=== PATIENT | female | born 1950 ===

== ENCOUNTER → 2024-03-17 06:27 | Outpatient (CLI) | payer OTHER ==
[2024-03-17 07:24] LABS: HEMATOCRIT 37.3 % (36.0-45.00); HEMOGLOBIN 12.8 g/dL (12.0-15.00); MEAN CELL VOLUME 87.8 fL (80.00-100.00); MEAN CORPUSCULAR HEMOGLOBIN 30.1 pg (27.00-32.0); MEAN CORPUSCULAR HGB CONC 34.3 g/dl (32.0-36.0); PLATELET COUNT 185 K/uL (150-450); RED BLOOD COUNT 4.25 M/uL (4.00-6.00); RED CELL DISTRIBUTION WIDTH 14.1 % (11.5-14.5)
[2024-03-17 08:16] LABS: ALBUMIN 3.6 gm/dL (3.4-5.0); BILIRUBIN TOTAL 0.44 mg/dL (0.3-1.2); CALCIUM 8.5 mg/dL (8.5-10.1); CREATININE SERUM 0.59 mg/dL (0.55-1.02); GFR 99.64; GLOBULINA 3.2 G/DL (2.4-3.5); POTASSIUM 3.95 mEq/L (3.5-5.1); T4 FREE 1.15 NG/ML (0.76-1.46); TOTAL PROTEIN 6.8 gm/dL (6.4-8.2); TSH 1.38 uIU/mL (0.358-3.74)
[2024-03-17 10:32] LABS: FOLIC ACID 12.9 ng/ml (4.78-20)
[2024-03-19 09:22] LABS: MANUAL PLATELET COUNT 270
[2024-03-19 09:24] LABS: PLATELET ESTIMATE NORMAL (NORMAL)
[2024-03-22 16:29] LABS: g6pd quant 259 (127-427); rbc 4.29 x10E6/uL (3.77-5.28)
== END | disposition home or self-care (01) ==
LOC: LAB 06:27
PROVIDERS: ATTEND Internal Medicine Hematology & Oncology
DX: D51.3 Other dietary vitamin B12 deficiency anemia (principal); F41.3 Other mixed anxiety disorders; J47.9 Bronchiectasis, uncomplicated; E78.2 Mixed hyperlipidemia; D50.8 Other iron deficiency anemias; R79.9 Abnormal finding of blood chemistry, unspecified; I10 Essential (primary) hypertension; R74.02 Elevation of levels of lactic acid dehydrogenase [LDH]; K76.89 Other specified diseases of liver; E06.3 Autoimmune thyroiditis; E03.8 Other specified hypothyroidism; R97.0 Elevated carcinoembryonic antigen [CEA]; C56.9 Malignant neoplasm of unspecified ovary